=== PATIENT | male | born 1985 | race Two or more races ===

== ENCOUNTER → 2019-06-22 | Emergency (ER) | payer BC, OTHER ==
[~2019-06-22] VITALS: Ht 167.6 cm; Wt 81.6 kg
[~2019-06-22] MED LIST: MORPHINE SULFATE 4 MG/ML SYR/VIAL IV ONE; ONDANSETRON HCL 4 MG/2 ML VIAL IV ONE; SODIUM CHLORIDE 0.9% 1,000 ML IV ONE
[2019-06-23 03:11] VITALS: BP 115/72
== END | disposition short-term general hospital (02) ==
LOC: EDBD 22:07 → ER 22:10
DX: S05.32XA Ocular laceration without prolapse or loss of intraocular tissue, left eye, initial encounter (principal); H53.2 Diplopia; R04.0 Epistaxis; Y04.2XXA Assault by strike against or bumped into by another person, initial encounter; Y93.89 Activity, other specified; Y99.8 Other external cause status; Y92.098 Other place in other non-institutional residence as the place of occurrence of the external cause
CPT/HCPCS: 70450; 96374; 96375; J2405

== ENCOUNTER 2019-10-08 22:28 | Emergency (ER) | payer BC | END 2019-10-09 00:29 | disposition left against medical advice (07) | LOC: ER 22:28 | DX: R50.9 Fever, unspecified (principal); Z53.21 Procedure and treatment not carried out due to patient leaving prior to being seen by health care provider ==